=== PATIENT | male | born 1970 | race Two or more races ===

== ENCOUNTER 2024-05-30 10:25 | Emergency (ER) | payer OTHER ==
[~2024-05-30] VITALS: Ht 152.4 cm; Wt 90.7 kg
[2024-05-30] MEDS ORDERED: CEFTRIAXONE SODIUM 1,000 MG VIAL IM ONE (12:00)
[2024-05-30] MEDS ORDERED: FAMOtidine 10 MG/ML (4ML VIAL) IV PUSH ONE (12:00)
[2024-05-30] MEDS ORDERED: TRAMADOL HCL 50 MG TABLET PO ONE (12:15)
[2024-05-30] MEDS ORDERED: CEFTRIAXONE SODIUM 1,000 MG VIAL ONE (13:42)
[2024-05-30] MEDS ORDERED: FAMOTIDINE/PF 20 MG/2 ML VIAL ONE (13:43)
[2024-05-30] MEDS ORDERED: LIDOCAINE HCL 1% 10ML VIAL ONE (13:45)
[2024-05-30 14:50] LABS: HEMATOCRIT 44.7 % (39.0-48.0); HEMOGLOBIN 15.4 g/dL (13-16.00); MEAN CELL VOLUME 96.5 fL (80.0-100.00); MEAN CORPUSCULAR HEMOGLOBIN 33.3 pg (27.00-32.0); MEAN CORPUSCULAR HGB CONC 34.5 g/dl (32.0-36.0); PLATELET COUNT 150 K/uL (150-450); RED BLOOD COUNT 4.63 M/uL (4.00-6.00); RED CELL DISTRIBUTION WIDTH 13.5 % (11.5-14.5)
[2024-05-30 15:06] LABS: ERYTHROCYTE SEDIMENTATION RATE < 1 mm/hr
[2024-05-30 15:20] LABS: INR 1.08; PARTIAL THROMBOPLASTIN TIME 27.3 SECONDS (22.0-34.0); PROTHROMBIN TIME 11.7 SECONDS (9.0-11.5)
[2024-05-30 15:28] LABS: ALKALINE PHOSPHATASE 53 U/L (50-136); ALT/SGPT 56 U/L (12-78); ANION GAP 5 (10.0-20.0); AST/SGOT 19 U/L (15-37); BILIRUBIN TOTAL 0.49 mg/dL (0.3-1.2); BLOOD UREA NITROGEN 14 mg/dL (7-18); BUN CREA RATIO 14 (7.0-25.0); CALCIUM 9.2 mg/dL (8.5-10.1); CARBON DIOXIDE 32 mEq/L (21-32); CHLORIDE 110 mmol/L (98-107); CREATININE SERUM 0.99 mg/dL (0.70-1.30); GFR 79.38; GLOBULINA 3.3 G/DL (2.4-3.5); GLUCOSE FASTING 101 mg/dL (65-100); OSMOLALITY SERUM 286 MOSM/KG (275-295); POTASSIUM 4.33 mEq/L (3.5-5.1); SODIUM 143 mmol/L (136-145); TOTAL PROTEIN 7.3 gm/dL (6.4-8.2)
[2024-05-30 15:29] LABS: C-REACTIVE PROTEIN < 0.29 MG/DL (0.00-0.29)
== END 2024-05-30 16:25 | disposition home or self-care (01) ==
LOC: ER 10:27
PROVIDERS: General Practice
DX: L03.116 Cellulitis of left lower limb (principal); L03.115 Cellulitis of right lower limb; B35.3 Tinea pedis